=== PATIENT | male | born 1950 | race Asian ===

== ENCOUNTER 2018-05-14 20:27 | Emergency (ER) | payer MEDICARE ==
[~2018-05-14] VITALS: Ht 167.6 cm; Wt 68.0 kg
[~2018-05-14 20:27] MED LIST: UNOBMED
[2018-05-14 20:45] VITALS: BP 152/77
[2018-05-14] MEDS ORDERED: Tetanus/Diptheria/Pertussis Vaccine 0.5ml Syr IM ONE (21:00)
--- NOTE | 2018-05-14 21:37 | Emergency Room Report ---
History of Present Illness General Chief Complaint: Alcohol Intoxication Source: Patient, EMS Present Illness HPI Patient is a 67-year-old male who presented after a recent fall. The patient was noted to have increased pain to his left hip. The patient was noted to have injured the right side of his face. The patient had previous episodes of left hip pain. Patient denies any current complaints.The patient denies any recent tetanus vaccine. Allergies: Coded Allergies: UNABLE TO ASSESS (Unverified , 05/14/18) Patient History Past Medical History: see triage record Reviewed Nursing Documentation: PMH: Agreed; PSxH: Agreed Nursing Documentation-PMH Past Medical History Deferred: Pt Cognitively Impaired Review of Systems All Other Systems: limited - by poor historian Physical Exam Vital Signs Date Time Temp Pulse Resp B/P (MAP) Pulse Ox O2 Delivery O2 Flow Rate FiO2 05/14/18 20:20 98.4 82 22 174/82 100 Room Air Sp02 EP Interpretation: reviewed, normal General Appearance: normal inspection, well appearing, no apparent distress, alert, GCS 15 Head: other - right side facial abrasion ENT: normal ENT inspection, hearing grossly normal, normal voice Neck: normal inspection, full range of motion, supple, no bony tend Respiratory: normal inspection, lungs clear, normal breath sounds, no respiratory distress, no retraction, no wheezing Cardiovascular #1: regular rate, rhythm, no edema Gastrointestinal: normal inspection, normal bowel sounds, non tender, soft, no guarding, no hernia Genitourinary: no CVA tenderness Musculoskeletal: normal inspection, back normal, normal range of motion Neurologic: normal inspection, alert, oriented x3, responsive, 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 Differential diagnosis included was not limited to fracture, head injury, or intracranial hemorrhage, syncopal episode among others. CT imaging of the head read by radiology showed no acute fracture. Patient was noted be a ambulatory without assistance.The patient was able to provide his address and did not want to remain in the hospital or have any further testing.The patient was noted to be awake alert and oriented and was able to give across street of the location where he lives. The patient appears to be stable for discharge at this time.The patient is advised follow- up with his primary care physician. Last Vital Signs Date Time Temp Pulse Resp B/P (MAP) Pulse Ox O2 Delivery O2 Flow Rate FiO2 05/14/18 21:15 88 22 Room Air 05/14/18 20:45 98.1 152/77 100 Status: improved Disposition: HOME, SELF-CARE Condition: Stable Scripts Bacitracin Zinc* (BACITRACIN ZINC*) 1 Each Packet 1 APPLIC TOPIC THREE TIMES A DAY, #30 PACKET Prov: Kaiden Diaz MD 05/14/18 Kaiden Diaz MD May 14, 2018 21:37
[2018-05-14] MEDS ORDERED: BACITRACIN ZIN1 EACH TOPIC (21:38)
[2018-05-14] MEDS ORDERED: Bacitracin Oint UD TOPIC ONE ×2 (21:43→21:45)
[2018-05-14 22:00] VITALS: BP 143/82
--- NOTE | 2018-05-15 10:12 | Diagnostic Imaging Report ---
Indications: Head pain, status post fall Technique: Spiral acquisitions obtained through the brain. Angled axial and coronal 5 x 5 mm slices were reconstructed. Total dose length product 1418.11 mGycm. CTDI vol(s) 70.38 mGy. Dose reduction achieved using automated exposure control Comparison: None. Findings: Area of encephalomalacia is seen in the right occipital lobe. There is age-related enlargement of the ventricles and extra axial CSF spaces. There is extensive periventricular deep white matter low-attenuation consistent with chronic ischemic change. There are multiple old lacunar infarcts in the right basal ganglia region. No acute intracranial hemorrhage nor edema. No mass effect nor midline shift. The calvarium is intact. There is minimal ethmoid sinus disease. Visualized orbits are unremarkable. 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 The CT scanner at [facility] is accredited by the [employer] and the scans are performed using protocols designed to limit radiation exposure to as low as reasonably achievable to attain images of sufficient resolution adequate for diagnostic evaluation.
== END 2018-05-14 23:26 | disposition home or self-care (01) ==
LOC: EDBD 20:27 → EMR 20:59
DX: G31.9 Degenerative disease of nervous system, unspecified (principal); S00.81XA Abrasion of other part of head, initial encounter; W19.XXXA Unspecified fall, initial encounter; M25.552 Pain in left hip; Y92.9 Unspecified place or not applicable; Z23 Encounter for immunization
CPT/HCPCS: 70450; 90471; 90715; 99284